=== PATIENT | female | born 1970 | race Caucasian/White ===

== ENCOUNTER 2017-03-10 12:08 | Outpatient (CLI) | payer OTHER ==
--- NOTE | 2017-03-16 10:24 | Mammography Report ---
DATE OF SERVICE: 03/10/2017 DIGITAL BILATERAL SCREENING MAMMOGRAM: 03/10/2017 COMPARISON: Mammogram 08/19/2008. INDICATION: Screening mammography. TECHNIQUE: Bilateral CC and MLO breast views. FINDINGS There are scattered fibroglandular densities. No dominant mass, architectural distortion, or concerning cluster of microcalcifications is seen. IMPRESSION: BIRADS category 1. Negative. RECOMMENDATIONS: Annual screening mammogram. STANDARD QUALIFYING STATEMENTS 1. This examination was reviewed with the aid of Computed-Aided Detection (CAD) . 2. A negative or benign imaging report should not delay biopsy if clinically suspicious findings are present. Consider surgical consultation if warranted. More than 5% of cancers are not identified by imaging. 3. Dense breasts may obscure an underlying neoplasm. TD: 03/14/2017 21:20 MTDJulian
== END 2017-03-10 12:09 | disposition home or self-care (01) ==
LOC: DI 12:08
PROVIDERS: ATTEND Internal Medicine
DX: Z12.31 Encounter for screening mammogram for malignant neoplasm of breast (principal)
CPT/HCPCS: 77067

== ENCOUNTER 2017-04-21 07:21 | Outpatient (CLI) | payer OTHER | END 2017-04-21 07:22 | disposition critical access hospital (66) | LOC: EMS 07:21 | PROVIDERS: ATTEND Surgery | DX: R53.1 Weakness (principal) | CPT/HCPCS: A0425; A0429 ==

== ENCOUNTER 2017-04-21 07:49 | Emergency (ER) | payer OTHER ==
[2017-04-21 07:59] VITALS: BP 123/70
--- NOTE | 2017-04-21 08:56 | ED Physician Documentation ---
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 She landed onto her left knee. She denies hitting her head or losing consciousness. She did not feel lightheaded before the incident occurred. [facility] She denies recent fever, headache, chest pain, shortness of breath, nausea or vomiting. The left leg weakness is new. She has had left facial and upper extremity weakness. Review of Systems Constitutional: denies: Fever Ears: denies: Tinnitus/ringing Nose: denies: Congestion Throat: denies: Sore throat Cardiac: denies: Chest pain / pressure Respiratory: denies: Dyspnea, Cough GI: denies: Abdominal Pain, Nausea, Vomiting : denies: Dysuria Skin: denies: Rash, Abrasion (s), Laceration (s) Musculoskeletal: denies: Back pain, Extremity swelling Neurologic: reports: Focal weakness (Left-sided). 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, Oophrectomy HEENT: Cataracts - Present Medications Home Medications: Ambulatory Orders Medication Instructions Recorded Confirmed Dexamethasone [Decadron] 4 mg PO BIDWM #10 tablet 05/09/15 Triamcinolone 0.1% Oint [Kenalog 1 applic TOP BID #4 tube 05/09/15 0.1% Oint] - Allergies Allergies/Adverse Reactions: Allergies Allergy/AdvReac Type Severity Reaction Status Date / Time Sulfa (Sulfonamide Allergy Intermediate Rash Verified 04/21/17 13:05 Antibiotics) - Social History Does the pt smoke?: No Smoking Status: Never smoker Does the pt drink ETOH?: No Does the pt have substance abuse?: No - Immunizations Immunizations are current?: Yes PD ED PE NORMAL - Vitals Vital signs reviewed: Yes (Normal) - General General: Alert and oriented X 3, Well developed/nourished - HEENT HEENT: Atraumatic, EOMI, Moist mucous membranes, Pharynx benign - Neck Neck: Supple, no meningeal sign, No adenopathy, No JVD - Cardiac Cardiac: RRR, No murmur - Respiratory Respiratory: No respiratory distress, Clear bilaterally - Abdomen Abdomen: Soft, Non tender - Back Back: No CVA TTP, No spinal TTP - Derm Derm: No rash - Extremities Extremities: No edema, No calf tenderness / cord, Other (Superficial abrasion over the prepatellar aspect of the left knee.) - Neuro Neuro: Alert and oriented X 3, No sensory deficit, Other (Decreased strength of the left lower extremity and left upper extremity, as well as left facial droop. She can raise her left arm at the shoulder, but there is decreased strength at the distal extremity. She can raise her left leg off the bed, but cannot hold it up for 10 seconds. Distal light touch sensation is intact.) Motor: Obeys Commands Verbal: Oriented Results - Vitals Vitals: Oxygen O2 Source Room air - EKG (time done) 08:42 Rate: Rate (enter#) (60) Rhythm: NSR Stacy: Normal Intervals: RBBB Ischemia: Q waves (in III.) Compare to prior EKG: Old EKG unavailable Computer interpretation: Agree with computer - Labs Labs: Laboratory Tests 04/21/17 04/21/17 04/21/17 09:05 09:05 09:05 WBC 12.1 H RBC 5.12 Hgb 14.4 Hct 43.5 MCV 85.0 MCH 28.0 MCHC 33.0 RDW 14.0 Plt Count 263 MPV 7.4 L Neut # 9.2 H Lymph # 1.6 Adams # 1.2 H Eos # 0.0 Baso # 0.0 Absolute Nucleated RBC 0.00 Nucleated RBC % 0.0 Sodium 137 Potassium 3.8 Chloride 99 L Carbon Dioxide 24 Anion Gap 14.0 H BUN 16 Creatinine 0.4 Estimated GFR (MDRD) 170 Glucose 91 Calcium 8.7 Total Bilirubin 0.4 AST 53 H ALT 67 H Alkaline Phosphatase 190 H Troponin I < 0.04 Total Protein 6.4 L Albumin 2.9 L Globulin 3.5 Albumin/Globulin Ratio 0.8 L Lipase 14 L - Rads (name of study) Head CT w/o Radiology: Prelim report reviewed, EMP read contemporaneously, See rad report ( Multiple regions of the right frontal lobe swelling and edema. Etiology is uncertain, the differential could include subacute infarct, tumor, tumor treatment related change or infection. No evidence for acute intracranial hemorrhage.) PD MEDICAL DECISION MAKING - ED course Complexity details: reviewed old records, reviewed results, re-evaluated patient , considered differential, d/w patient, d/w family, d/w employee relations consultant ED course: The patient's presentation is most consistent with increased cerebral swelling related to metastatic melanoma with recent radiation therapy. There is no intracranial hemorrhage detected on CT scan of the brain. I discussed the patient's presentation with her oncologist, Dr. Soto at [facility]. He requested that the patient come to the Heme/Onc clinic at [facility], and advised that an extra 4 mg dose of dexamethasone be administered. I discussed this with the patient and her mother, who will transport her by private auto to the Heme/Onc clinic at [facility]. Transfer forms were completed. Departure - Departure Disposition: 02 Transfer Acute Care Hosp Clinical Impression: Left leg weakness, Malignant melanoma metastatic to brain Condition: Fair Follow-Up: Estela Navarro MD [Primary Care Provider] - [facility] [Provider Group] Comments: Go directly to the hematology/oncology clinic at [facility]. Dr. Soto anticipate your arrival in the clinic for evaluation and further treatment. Discharge Date/Time: 04/21/17 13:14
[2017-04-21 09:21] LABS: BASOPHILS % (AUTO) 0.4 %; EOSINOPHILS % (AUTO) 0.1 %; HGB - HEMOGLOBIN 14.4 g/dL (12.0-16.0); LYMPHOCYTES # (AUTO) 1.6 10^3/uL (1.5-3.5); LYMPHOCYTES % (AUTO) 13.2 %; MEAN PLATELET VOLUME 7.4 fL (7.9-10.8); MONOCYTES # (AUTO) 1.2 10^3/uL (0.0-1.0); MONOCYTES % (AUTO) 10.1 %; NEUTROPHILS # (AUTO) 9.2 10^3/uL (1.5-6.6); NEUTROPHILS % (AUTO) 76.2 %; PLT - PLATELET COUNT 263 10^3/uL (130-450); RED BLOOD COUNT 5.12 10^6/uL (4.20-5.40); WHITE BLOOD COUNT 12.1 x10^3/uL (4.8-10.8)
[2017-04-21 09:52] LABS: ALBUMIN 2.9 g/dL (3.2-5.5); ALBUMIN/GLOBULIN RATIO 0.8 (1.0-2.2); BILIRUBIN,TOTAL 0.4 mg/dL (0.2-1.0); CALCIUM 8.7 mg/dL (8.5-10.3); CREATININE 0.4 mg/dL (0.4-1.0); TOTAL PROTEIN 6.4 g/dL (6.7-8.2)
--- NOTE | 2017-04-21 10:36 | CT Report ---
EXAM: CT HEAD EXAM DATE: 04/21/2017 09:58 AM. CLINICAL HISTORY: Left sided weakness. Melanoma. COMPARISON: None. TECHNIQUE: Multiaxial CT images were obtained from the foramen magnum to the vertex. Reformats: Coron al. IV contrast: None. In accordance with CT protocol optimization, one or more of the following dose reduction techniques w ere utilized for this exam: automated exposure control, adjustment of mA and/or KV based on patient s ize, or use of iterative reconstructive technique. FINDINGS: There is a 3-4 cm region of abnormal hypodensity in the region of the lateral right frontal lobe. Thi s is accompanied by local sulcal effacement. More superiorly over the right frontal convexity there a ppeared to be additional smaller less well-defined regions of abnormal hypodensity. These finding is of unknown etiology but suggest brain swelling and edema that may be from infarct, tumor or tumor alysa atment. Infection is possible but less likely. Small ill-defined right basal ganglia region hypodensity is also present. No definite hemorrhage. No hydrocephalus or midline shift. Probable incompletely visualized left maxillary dental decay. Mild chronic-appearing maxillary mucosa l thickening. Underdeveloped/under aerated mastoids. Diffusely sclerotic appearing bones of the skull and skull bas e. IMPRESSION: Multiple regions of right frontal lobe swelling and edema. Etiology is uncertain, the dif ferential could include subacute infarct, tumor, tumor treatment related change or infection. No evidence for acute intracranial hemorrhage. If any prior brain imaging studies can be made available, an addendum comparison can be generated. As clinically warranted, brain abnormalities could be further evaluated with MRI to help narrow the d ifferential diagnosis. [facility] Referring Provider Line: [phone] SITE ID: [id number]
[2017-04-21] MEDS ORDERED: DEXAMETHASONE 10 MG/ML VIAL PO STA (12:56)
[2017-04-21] MEDS ORDERED: CHERRY SYRUP 10 ML UDC PO ONE (13:07)
== END 2017-04-21 13:14 | disposition short-term general hospital (02) ==
LOC: EDUNIT# → ED 07:49
DX: R53.1 Weakness (principal); W18.39XA Other fall on same level, initial encounter; Y92.012 Bathroom of single-family (private) house as the place of occurrence of the external cause; C43.9 Malignant melanoma of skin, unspecified; C79.31 Secondary malignant neoplasm of brain; I45.10 Unspecified right bundle-branch block; R94.31 Abnormal electrocardiogram [ECG] [EKG]; E11.9 Type 2 diabetes mellitus without complications
CPT/HCPCS: 36415; 70450; 80053; 83690; 84484; 85025; 93005; 99283; 99285; A9270